=== PATIENT | female | born 2000 | race Caucasian/White ===

== ENCOUNTER 2024-02-18 06:27 | Outpatient (REF) | payer OTHER, SELFPAY ==
--- NOTE | ~2024-02-18 | US_ITS ---
EXAMINATION: US PELVIS CLINICAL INFORMATION: IUD COMPARISON: None available. TECHNIQUE: Ultrasound of the pelvis is performed using both transabdominal and transvaginal transducers along with Doppler. Transvaginal imaging is performed due to inadequate visualization transabdominally. FINDINGS: Uterus: The uterus is anteverted and measures 7.6 x 3.9 x 6.7 cm. The double wall endometrial thickness is 0.2 mm. IUD within the endometrium. The uterus is smooth in contour and has normal myometrial echogenicity. No visible fibroid. Adnexa: Both ovaries are visualized. There is normal color flow to the adnexa. There is no ovarian torsion. There is no pelvic ascites or fluid collection. Right ovary measures 3.2 x 2.4 x 1.9 cm. Left ovary measures 4.5 x 2.8 x 2.9 cm. There is a 2.2 x 1.3 x 2.4 cm cyst. US/US pelvic and transvaginal IMPRESSION: 1. IUD within the endometrium. 2. 2.4 cm left ovarian cyst. Electronically signed by: Natali Palmer MD 02/18/2024 08:26 PM DORIS
--- OUTSIDE RECORDS SUMMARY | 2024-02-23 04:36 | XMS_ITS ---
Author Organization [facility] Address [address] [id number] Care Team Providers Care Waiter/Waitress Bar Name Role Phone America Gonzales MD Primary Care Provider Jah Macdonald M.D., Alonso Silva [phone] Allergies Allergen (clinical drug ingredient) Drug/Non Drug Allergy documented on EMR Reaction Allergy Type Onset Date Status COUGH Medicine (uncoded) eyes get overly dilated Allergy Active REASON FOR VISIT Post op T&A. Patient had a tonsillectomy bleed Medications Medication SIG (Take, Route, Frequency, Duration) Notes Start Date End Date Status Flonase nasal spray 50 mcg/inh 1 spray(s) in each nostril once a day for 30 day(s) Active Vivance as directed Active naproxen 375 mg 1 tab(s) orally once a day Active Social History Tobacco Use: Social History Observation Description Date Details (start date - stop date) Never Smoker NA - NA Alcohol use: Question Answer Notes Did you have a drink containing alcohol in the p ast year? No Points 0 Interpretation Negative Smoking Question Answer Notes Are you nonsmoker Vital Signs Height 5'4 in 09/22/2022 Weight 57.27 kg kg 09/22/2022 BMI 21.67 kg/m2 09/22/2022 Encounters Encounter Location Date Provider Diagnosis [facility] [address] [id number] 09/22/2022 Alonso Macdonald Chronic tonsillitis J35.01 ; Tonsil stone J35.8 and Post-tonsillectomy hemorrhage J95.830 Assessments Encounter Date Diagnosis (ICD Code) Assessment Notes Treatment Notes Treatment Clinical Notes Section Notes 09/22/2022 Chronic tonsillitis (ICD-10 - J35.01) Pt doing better following tonsillectomy and adenoidectomy. 09/22/2022 Tonsil stone (ICD-10 - J35.8) 09/22/2022 Post-tonsillecto my hemorrhage (ICD-10 - J95.830) Pt doing better now.Pt will start the level of activities. Plan Of Treatment Next Appt Details Follow Up: prn, Reason: Progress Notes * Jenny OLIVEROS MDOB: [birth year] (22 yo F)Acc No.[id number]:09/22/2022 Progress Notes Patient:?Jenny Oliveros [place] Provider:?Alonso Macdonald MD :2000???Age:22 Y???Sex:Female D ate:09/22/2022 Address:[address] [place] [id number] Pcp:America Gonzales MD Subjective: * Chief Complaints: * ???Post op T&A. Patient had a tonsillectomy bleed * HPI: ???Throat:? Patient follow-up from tonsillectomy and adenoidectomy. ?No further bleeding and is doing better. ?I discussed with mother and patient the pathology. * Medical History:? * Surgical History:?Eye muscle surgery 05/27/2016[place] teeth removal 04/29/2018T&A 08/2022 * Hospitalization/Major Diagno stic Procedure:?Denies Past Hospitalization * Family History:?No Family Hi story documented..? * Social History:?Occupation: student. PHARMACY name/location: [employer]. Smoking?Are you?nonsmoker,?You Are:?Never Smoker.?Marital Status: Single. Number of people in household: 3. Legal guardian: Parent. Current Tobacco Use: No. Alcohol use?Did you have a drink containing alcohol in the past year??No,?Points?0,?Interpretation?Negative.? * Medications:?Takingnaproxen 375 mg delayed release tablet 1 tab(s) orally once a dayVivance as directed Flonase nasal spray 50 mcg/inh spray 1 spray(s) in each nostril once a dayMedication List reviewed and reconciled with the patientTaking naproxen 375 mg delayed release tablet 1 tab(s) orally once a dayTaking Vivance as directed Taking Flonase nasal spray 50 mcg/inh spray 1 spray(s) in each nostril once a dayMedication List reviewed and reconciled with the patient * Allergies:?COUGH Medicine: e yes get overly dilatedno[Allergies Verified] Objective: * Vitals:?Ht: 5'4 , Pain Scale :0, Wt: 57.27 kg, BMI: 21.67. * Examination: ???Ear: ???TMs are normal. ???Oral/Oropharynx: ???Oropharynx healing well. Assessment: * Assessment: 1.?Chronic tonsillitis - J35 .01, Pt doing better following tonsillectomy and adenoidectomy.?2.?Tonsil stone - J35.8?3.?Post-tonsillectomy hemorrhage - J95.830, Pt doing better now.Pt will start the level of activities.? Plan: * Treatment: * Procedure Codes:? * Preventive Medicine:? ??Counseling:?BMI Care goal follow up plan:?BMI management provided?Yes.? * Follow Up:?prn * Images: * Sign off status: Completed true * Provider:?Alonso Macdonald MD Date:?09/12 Generated for Adilson saunders/Sharon/eTransmitting on:?02/23/2024 04:36 AM EST History and Physical Notes * Examination Category Sub-Category Detail Notes Category Not es Ear TMs are normal. Oral/Oropharynx Oropharynx h ealing well.
--- OUTSIDE RECORDS SUMMARY | 2024-02-23 04:37 | XMS_ITS | Patient Health Record ---
Author Organization [facility] Address [address] [facility] [address] [place], [place] [phone] Care Team Providers Care Internet Manager Name Role Phone America Gonzales MD Primary Care Provider Jah Macdonald M.D., Alonso Shira [phone] Allergies Allergen (clinical drug ingredient) Drug/Non Drug Allergy documented on EMR Reaction Allergy Type Onset Date Status COUGH Medicine (uncoded) eyes get overly dilated Allergy Active Reason For Referral No Information Medications Medication SIG (Take, Route, Frequency, Duration) [...] Smoking Question Answer Notes Are you nonsmoker Problems Problem Type SNOMED Code ICD Code Onset Dates Problem Status W/U Status Risk Notes Problem 07302855 Chronic tonsillitis (J35.01) Active confirmed Pt doing better following tonsillectomy and adenoidectomy. Problem Chronic tonsillitis (disorder) (08432091) Chronic tonsillitis and adenoiditis (J35.03) Active confirmed Problem 185404451 Epistaxis (R04.0) Active confirmed Problem 89971323 Cough (R05) Active confirmed I discussed with mother that her throat clearing as it relates to PND aggravates her cough. Both vocal cords have normal movement. I would have patient use a saline spray to facilitate drainage. See an pretzel twisting machine operator. 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) Active confirmed Problem 240339232 Deviated septum (J34.2) Active confirmed Problem 39166799 Tonsillar hypertrophy (J35.1) Active confirmed Problem 98088553178919108 Chronic sinusitis of both maxillary sinuses (J32.0) Active confirmed I discussed with mom that there maybe both a structural as well as functional issue with her PND will obtain a CT scan to further evaluate her symptoms Problem 1877923 Tonsil stone (J35.8) Active confirmed Problem 75146352 Post-nasal drainage (R09.82) Active confirmed Problem 56262803 Facial pain (R51.9) Active confirmed I discussed with patient I did not appreciate an acute sinusitis issue. Her septal deformity and inferior turbinate hypertrophy I would recommend observation Problem 818328411 Chronic throat clearing (R09.89) Active confirmed I discussed with patient and mother that there is multiple causes of her throat clearing postnasal drainage issue. In addition, her Vyvanse medication can contribute to dry mouth Plan Of Treatment No Information Insurance Providers Payer Name Payer Address Payer Phone Subscriber Number Group Number Insured Name Patient Relationship to Insured Coverage Start Date Coverage End Date [employer] [facility] [employer] [address] [place] [phone] [id number] Rocio Medina Child - Insured has Financial Responsibility Medical (General) History Surgical History Surgery Date(Month/Year) Eye muscle surgery 05/27/2016 [place] teeth removal 04/29/2018 T&A 08/2022 Hospitalization History Reason Date(Month/Year)
--- OUTSIDE RECORDS SUMMARY | 2024-02-23 04:37 | XMS_ITS ---
Author Organization [facility] Address [address] [phone] Care Team Providers Care Negotiations Director Name Role Phone America Gonzales MD Primary Care Provider Jah Macdonald M.D., Alonso Silva [phone] REASON FOR VISIT prescription Encounters Encounter Location Date Provider Diagnosis [facility] [address] [phone] 09/18/2022 Alonso Macdonald Plan Of Treatment No Information Progress Notes * Jenny OLIVEROS MDOB: [birth year] (22 yo F)Acc No.[id number]:09/18/2022 Patient:?Jenny Oliveros :2000???Age:22 Y???Sex:Female Address:[address] [place] [address], [phone] * true * Date:? Generated for Adilson saunders/Sharon/eTransmitting on:?02/23/2024 04:36 AM EST
--- OUTSIDE RECORDS SUMMARY | 2024-02-23 04:37 | XMS_ITS | Data Portability ---
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 Follow up appointment arranged 30 minutes visit time. real-time video communication counseling and coordinating care. [email or web address] Not available 03/21/2021 12:11:27 09/26/2021 09/26/2021 Instructions, orders, and treatment plan, were discussed and reviewed with the patient during the visit. Follow up appointment arranged 30 minutes visit time. real-time video communication counseling and coordinating care. [email or web address] Not available 09/26/2021 11:52:38 08/21/2022 08/21/2022 Instructions, orders, and treatment plan, were discussed and reviewed with the patient during the visit. Follow up appointment arranged 40 minutes visit time. real-time video communication counseling and coordinating care. [email or web address] Not available 08/21/2022 11:10:13 08/10/2023 08/10/2023 Instructions, orders, and treatment plan, were discussed and reviewed with the patient during the visit. Follow up appointment arranged 30 minutes visit time. real-time video communication counseling and coordinating care. Not available 08/10/2023 14:54:53 11/04/2023 11/04/2023 Instructions, orders, and treatment plan, were discussed and reviewed with the patient during the visit. Follow up appointment arranged 20 minutes visit time. real-time video communication counseling and coordinating care. Instructions, orders, and treatment plan, were discussed and reviewed with the patient during the visit. Follow up appointment arranged 30 minutes visit time. real-time video communication counseling and coordinating care. [email or web address] Not available 11/04/2023 13:55:02 Plan of Treatment Reminders Order Date Submit Date Provider Last Modified By Organization Details Last Modified Time Details Appointments Telehealt h30 2023 12:30P M Duke Wilkins MD Not available Not available Not available Lab TSH, serum or plasma 2023 024 Sk[facility], [address] [facility], [place] [address], [place], [address], 08/14/2023 11:57:51 vitamin B12 + folate, serum or blood 2023 024 CLAIREPluck [facility], [address] [address], [place], [address], 08/14/2023 12:54:51 iron + TIBC + ferritin, serum 2023 024 [facility], [address] [facility], [place] [address], [place], [address], 08/14/2023 12:54:49 CBC 2023 024 CLAIREPluck [facility], [address] [address], [place], [address], 08/14/2023 11:57:52 CMP, serum or plasma 2023 024 [facility], [address] [facility], [place] [address], [place], [address], 08/14/2023 12:54:50 erythrocy te sedimenta tion rate by [email or web address] n method 2023 024 [facility], [address] [facility], [place] [address], [place], [address], 08/14/2023 13:16:04 Referral psychiatr ist referral - Please call patient to schedule appointme nt 2023 024 [email or web address] Duke Wilkins MD, [address] [facility], [place], [address], 09/09/2023 12:36:52 Procedures None recorded. Surgeries None recorded. Imaging None recorded. Medication Orders trazodone 50 mg tablet [address] [id number], [address], [place], [address], 03/21/2021 12:14:24 Patient TargetsNo targets recorded. Patient Instructions Encounter Date Encounter Id Patient Instructions Last Modified By Organization Details Last Modified Time 03/21/2021 [id number] She has a tenden cy with circadian phase delay as well as sleep onset insomnia triggered by anxiety. I have emphasized the importance of good sleep hygiene with stimulus control. I do believe trazodone has helped in addition to blue light filtering techniques. She will continue doing so when she returns back to college. I believe she needs to resume her meditation practice to help deal with the anxiety that she has struggled with in school. She had done well in the past when she was consistent with meditation. I also believe her sleep quality will be improved when her breathing issues have stabilized. I believe she may be benefited by possible tonsillectomy with adenoid removal if her current regimen is not working despite the pneumococcal vaccine. It does not appear that she has ongoing problems with asthma. There may be some concerns regarding a sensitivity in the dormitory at school. She remains physically active. I have emphasized the importance of a good exercise routine as it relates to architectural stability of sleep. I will see her back in the next 6 months when she is back at home. More than 50% of this 35 minutes clinic visit spent in coordinating and counseling care in the presence of her mother. [email or web address] Not available 03/21/2021 12:13:46 09/26/2021 [id number] She has known problems with circadian phase delay. Sleep hygiene and stimulus control instructions been reenforced. I am delighted that she has been practicing this on a consistent basis. Her sleep schedule also needs to remain consistent. She is targeting at least 10-11 hours of sleep. I believe the need for excessive sleep will hopefully diminish after the conclusion of her tonsillectomy. This may help with improved sleep quality. If this is not then I may bring her into the sleep lab for an overnight polysomnogram followed by multiple sleep latency testing. In the meantime Vyvanse has worked well for her. She also uses trazodone on some nights when she has troubles with sleep onset insomnia. I will see her back in 6 months and keep you updated. More than 50% of this 20 minutes clinic visit spent in coordinating and counseling care. [email or web address] Not available 09/26/2021 11:54:02 08/21/2022 [id number] She is strugglin g with adjusting to her biological tendency for sleep phase delay. I have spoken yet again about the importance of stimulus control and the lack of blue light in the evening hours. She will need bright light in the morning to allow her to wake up without too much of a struggle. She needs at least 8-9 hours of sleep time. She is on stimulant medication to help counteract the persistent sleepiness in the day. However she is anxious, angry and depressed. She will need the benefit of psychotherapy and possible mood stabilization medications to help deal with her anxiety and depression. She is due to see a therapist in the next few weeks. I have also asked her to contact me once she has had tonsil surgery. I would like to repeat a sleep study before she returns back to school. It will be important that she chews her environment carefully when she returns to school. She has 2 more years to graduate. When she does she will be best served by working in a situation that allows her to work late at night as well as allow her to sleep late in the morning. I will see her back in the next 6 months. More than 50% of this 45 minute clinic visit spent in coordinating and counseling care, using telehealth technology in the presence of her mother. Not available 08/21/2022 11:11:49 08/10/2023 [id number] There is a clear tendency towards circadian phase delay. Stimulus control and sleep hygiene instructions been reinforced. She does not have a primary disorder of sleepiness. Moreover she had struggles with insomnia which are well controlled with the combination of these measures as well as low-dose trazodone. She is also being treated by her psychiatrist for a mood disorder. She is maintained on Abilify therapy for this. Despite this she feels profoundly fatigued and sleepy in the daytime. Stimulant medication has worked well for her in the past. She is eager to resume but has been asked to start on an alerting medication under the guidance of her sleep physician. I do not believe she needs an overnight polysomnogram or multiple sleep latency testing. She would need to come off these medications which would clearly contribute to rebound insomnia. I believe this would be under the purview of her psycopharmacologis t. I will reach out to Dr. Baker at [phone]. Focalin or extended release Ritalin might be the best medication for her rather than considering Provigil or Nuvigil. She will have annual follow-up scheduled again in this clinic. [email or web address] Not available 08/10/2023 14:56:33 11/04/2023 [id number] I am delighted that she has responded well to lamotrigine therapy. She will continue to have follow-up in the psychiatry clinic for her mood disorder. She is sleeping better through the night. However she developed problems with diplopia on her stimulant medication. I will email her psychiatrist to see if there is an alternative such as Vyvanse or Concerta that has worked well for her in the past. This will be filled out at the [facility] pharmacy in [place] if needed. I have asked her not to compromise the amount of sleep time that she needs and gets. Stimulus control and sleep hygiene instructions been reinforced. The emphasis for physical activity during the school semester has also been emphasized. More than 50% of this visit is spent in coordinating and counseling her care, including the writing of this note [email or web address] Not available 11/04/2023 13:56:26 Reason for Referral Psychiatrist Referral for Mi xed anxiety and depressive disorder depression, sleepiness, Needs evaluation. Now is an adult. Mother very helpful. Please call patient to schedule appointment Referring Physician: Lopez Roblero, Pulmonary Disease, Encounter Date: 08/10/2023 Results Created Date Observation Date Name Description Value Unit Range Abnormal Flag Note LastModifiedBy Organization Detail LastModifiedTime 08/13/19 24 08/14/2023 TSH W/REF L FT4 TSH w/reflex to FT4 1.00 mIU/L normal Refer ence Range > or = 20 Years 0.40- 4.50 Pregn valdemar Range s First trime ster 0.26- 2.66 Secon d trime ster 0.55- 2.73 Third trime ster 0.43- 2.91 Not Available [facility] [place] [facility] [address], [place], [address], 08/14/2023 11:57:51 08/13/19 24 08/14/2023 CBC(H /H,RB C,WBC ,PLT) white blood cell count 9.6 thous and/u L 3.8-10 .8 normal Not Available [facility] [place] [facility] [address], [place], [address], 08/14/2023 11:57:52 08/13/19 24 08/14/2023 CBC(H /H,RB C,WBC ,PLT) red blood cell count 4.73 florecita on/uL 3.80-5 .10 normal Not Available [facility] [place] [facility] [address], [place], [address], 08/14/2023 11:57:52 08/13/19 24 08/14/2023 CBC(H /H,RB C,WBC ,PLT) hemoglobin 13.2 g/dL 11.7-1 5.5 normal Not Available [facility] [place] [facility] [address], [place], [address], 08/14/2023 11:57:52 08/13/19 24 08/14/2023 CBC(H /H,RB C,WBC ,PLT) hematocrit 40.5 % 35.0-4 5.0 normal Not Available [facility] [address], [place], [address], 08/14/2023 11:57:52 08/13/19 24 08/14/2023 CBC(H /H,RB C,WBC ,PLT) MCV 85.6 fL 80.0-1 00.0 normal Not Available [facility] [place] [facility] [address], [place], [address], 08/14/2023 11:57:52 08/13/19 24 08/14/2023 CBC(H /H,RB C,WBC ,PLT) MCH 27.9 pg 27.0-3 3.0 normal Not Available [facility] [place] [facility] [address], [place], [address], 08/14/2023 11:57:52 08/13/19 24 08/14/2023 CBC(H /H,RB C,WBC ,PLT) MCHC 32.6 g/dL 32.0-3 6.0 normal Not Available [facility] [address], [place], [address], 08/14/2023 11:57:52 08/13/19 24 08/14/2023 CBC(H /H,RB C,WBC ,PLT) RDW 14.0 % 11.0-1 5.0 normal Not Available [facility] [address], [place], [address], 08/14/2023 11:57:52 08/13/19 24 08/14/2023 CBC(H /H,RB C,WBC ,PLT) platelet count 339 thous and/u L 140-40 0 normal Not Available [facility] [place] [facility] [address], [place], [address], 08/14/2023 11:57:52 08/13/19 24 08/14/2023 CBC(H /H,RB C,WBC ,PLT) MPV 9.3 fL 7.5-12 .5 normal Not Available [facility] [address], [place], [address], 08/14/2023 11:57:52 08/13/19 24 08/14/2023 IRON, TIBC, CONCHITA PNL iron, total 88 mcg/d L 40-190 normal Not Available [facility] [place] [facility] [address] [place], [place], [address], 08/14/2023 12:54:49 08/13/19 24 08/14/2023 IRON, TIBC, CONCHITA PNL iron binding capacity 429 mcg/d L_(ca lc) 250-45 0 normal Not Available [facility] [place] [facility] [address] [place], [place], [address], 08/14/2023 12:54:49 08/13/19 24 08/14/2023 IRON, TIBC, CONCHITA PNL % saturation 21 %_(ca lc) 16-45 normal Not Available [facility] [place] [facility] [address], [place], [address], 08/14/2023 12:54:49 08/13/19 24 08/14/2023 IRON, TIBC, CONCHITA PNL ferritin 19 NG/mL 16-154 normal Not Available [facility] [place] [facility] [address] [place], [place], [address], 08/14/2023 12:54:49 08/13/19 24 08/14/2023 COMP META PNL glucose 118 mg/dL 65-99 high Fasti ng refer ence inter [place] For someo ne witho ut known diabe daphney, a gluco se value betwe en 100 and 125 mg/dL is consi stent with predi abete s and shoul d be confi rmed with a follo w-up test. Not Available [facility] [place] [facility] [address] [place], [place], [address], 08/14/2023 12:54:50 08/13/19 24 08/14/2023 COMP META PNL urea nitrogen (BUN) 16 mg/dL 7-25 normal Not Available [facility] [address], [place], [address], 08/14/2023 12:54:50 08/13/19 24 08/14/2023 COMP META PNL creatinine 0.61 mg/dL 0.50-0 .96 normal Not Available [facility] [address], [place], [address], 08/14/2023 12:54:50 08/13/19 24 08/14/2023 COMP META PNL eGFR 130 mL/mi n/1.7 3m2 > or = 60 normal Not Available [facility] [address], [place], [address], 08/14/2023 12:54:50 08/13/19 24 08/14/2023 COMP META PNL BUN/creatini ne ratio SEE NOTE: (calc ) 6-22 normal Not Repor neeraj: BUN and Creat inine are withi n refer ence range . Not Available [facility] [address], [place], [address], 08/14/2023 12:54:50 08/13/19 24 08/14/2023 COMP META PNL sodium 135 mmol/ L 135-14 6 normal Not Available [facility] [address], [place], [address], 08/14/2023 12:54:50 08/13/19 24 08/14/2023 COMP META PNL potassium 3.7 mmol/ L 3.5-5. 3 normal Not Available [facility] [address], [place], [address], 08/14/2023 12:54:50 08/13/19 24 08/14/2023 COMP META PNL chloride 102 mmol/ L 98-110 normal Not Available [facility] [address], [place], [address], 08/14/2023 12:54:50 08/13/19 24 08/14/2023 COMP META PNL carbon dioxide 27 mmol/ L 20-32 normal Not Available [facility] [address], [place], [address], 08/14/2023 12:54:50 08/13/19 24 08/14/2023 COMP META PNL calcium 9.1 mg/dL 8.6-10 .2 normal Not Available [facility] [address], [place], [address], 08/14/2023 12:54:50 08/13/19 24 08/14/2023 COMP META PNL protein, total 6.7 g/dL 6.1-8. 1 normal Not Available [facility] [address], [place], [address], 08/14/2023 12:54:50 08/13/19 24 08/14/2023 COMP META PNL albumin 4.3 g/dL 3.6-5. 1 normal Not Available [facility] [address], [place], [address], 08/14/2023 12:54:50 08/13/19 24 08/14/2023 COMP META PNL globulin 2.4 g/dL_ (calc ) 1.9-3. 7 normal Not Available [facility] [address], [place], [address], 08/14/2023 12:54:50 08/13/19 24 08/14/2023 COMP META PNL albumin/glob ulin ratio 1.8 (calc ) 1.0-2. 5 normal Not Available [facility] [address], [place], [address], 08/14/2023 12:54:50 08/13/19 24 08/14/2023 COMP META PNL bilirubin, total 0.3 mg/dL 0.2-1. 2 normal Not Available [facility] [place] [facility] [address], [place], [address], 08/14/2023 12:54:50 08/13/19 24 08/14/2023 COMP META PNL alkaline phosphatase 53 U/L 31-125 normal Not Available [facility] [place] [facility] [address], [place], [address], 08/14/2023 12:54:50 08/13/19 24 08/14/2023 COMP META PNL AST 13 U/L 10-30 normal Not Available [facility] [place] [facility] [address], [place], [address], 08/14/2023 12:54:50 08/13/19 24 08/14/2023 COMP META PNL ALT 15 U/L 6-29 normal Not Available [facility] [place] [facility] [address], [place], [address], 08/14/2023 12:54:50 08/13/19 24 08/14/2023 VIT B12/F OLATE ,SERU M vitamin B12 399 pg/mL 200-11 00 normal Pleas e Note: Altho ugh the refer ence range for vitam in B12 is 200-1 100 pg/mL , it has been repor neeraj that betwe en 5 and 10% of patie nts with value s betwe en 200 and 400 pg/mL may exper ience neuro psych iatri c and hemat ologi c abnor malit ies due to occul t B12 defic iency ; less than 1% of patie nts with value s above 400 pg/mL will have sympt oms. Not Available [facility] [place] [facility] [address], [place], [address], 08/14/2023 12:54:51 08/13/19 24 08/14/2023 VIT B12/F OLATE ,SERU M folate, serum 13.2 NG/mL normal Refer ence Range Low: <3.4 Borde rline : 3.4-5 .4 Elsa l: >5.4 Not Available [facility] [address], [place], [address], 08/14/2023 12:54:51 08/13/19 24 08/14/2023 SED RATE BY [facility] sed rate by modified [email or web address] 6 mm/h 0-20 normal Not Available [facility] [address], [place], [address], 08/14/2023 13:16:04 10/02/19 23 09/24/2022 home sleep testi ng (PROC ) No observ ation record ed. [email or web address] Not Available 2022 16:28:31 Result Notes None recorded. Procedures Surgical History None recorded. Imaging Results Imaging Date Name Status LastModified by Organiz ation Details LastModified Time 09/24/2022 home sleep testing (PROC) completed [email or web address] Information not available 10/26/2022 16:28:31 Procedure Notes None recorded. Medical Equipment None Reported. Medications Name Sig Start Date Stop Date Status Note LastModified by Organization Details LastModified Time cyclobenzap rine 10 mg tablet 08/21 completed Not Available Not Available Not Available amoxicillin 500 mg capsule TAKE 1 CAPSULE (500 MG) BY MOUTH TWICE A DAY FOR 5 DAYS 08/09 completed Not Available Not Available Not Available venlafaxine ER 75 mg capsule,ext ended release 24 hr TAKE 1 CAPSULE BY MOUTH EVERY DAY active Not Available Not Available No t Available clindamycin HCl 300 mg capsule 09/26 completed Not Available Not Available Not Available trazodone 50 mg tablet TAKE 1 TABLET BY MOUTH EVERYDAY AT BEDTIME active Not Available Not Available No t Available azithromyci n 250 mg tablet TAKE 2 TABLETS BY MOUTH TODAY, THEN TAKE 1 TABLET DAILY FOR 4 DAYS 10/04 completed Not Available Not Available Not Available fluconazole 150 mg tablet 08/21 completed Not Available Not Available Not Available valacyclovi r 1 gram tablet TAKE 1 TABLET BY MOUTH EVERY 12 HOURS FOR 7 DAYS 10/04 completed Not Available Not Available Not Available hydrocodone 5 mg-acetamin ophen 325 mg tablet 08/21 completed Not Available Not Available Not Available metronidazo le 0.75 % (37.5 mg/5 gram) vaginal gel active Not Available Not Available Not Available fluoxetine 10 mg tablet 08/09 completed Not Available Not Available Not Available oxycodone 5 mg/5 mL oral solution TAKE 5 ML (5 MG TOTAL) BY MOUTH EVERY 4 (FOUR) HOURS NEEDED FOR PAIN 08/09 completed Not Available Not Available Not Available metronidazo le 500 mg tablet 08/09 completed Not Available Not Available Not Available ondansetron 8 mg disintegrat ing tablet TAKE 1 TABLET (8 MG) BY MOUTH EVERY 8 HOURS NEEDED FOR NAUSEA AND VOMITING active Not Available Not Available No t Available lamotrigine 25 mg tablet PLEASE SEE ATTACHED FOR DETAILED DIRECTION S active Not Available Not Available No t Available amoxicillin 875 mg tablet 10/04 completed Not Available Not Available Not Available dextroamphe tamine-amph etamine ER 20 mg 24hr capsule,ext end release 08/21 completed Not Available Not Available Not Available naproxen sodium 550 mg tablet TAKE 1 TABLET BY MOUTH EVERY 12 HOURS NEEDED WITH FOOD OR MILK 08/21 completed Not Available Not Available Not Available oseltamivir 75 mg capsule 09/26 completed Not Available Not Available Not Available fluoxetine 20 mg tablet 08/09 completed Not Available Not Available Not Available misoprostol 200 mcg tablet active Not Available Not Available Not Available polymyxin B sulfate 10,000 unit-trimet hoprim 1 mg/mL eye drops active Not Available Not Available Not Available dextroamphe tamine-amph etamine ER 10 mg 24hr capsule,ext end release 08/21 completed Not Available Not Available Not Available norethindro ne acetate 5 mg tablet TAKE 1 TABLET BY MOUTH EVERY DAY active Not Available Not Available No t Available ibuprofen 600 mg tablet active Not Available Not Available Not Available oxycodone-a cetaminophe n 7.5 mg-325 mg tablet TAKE 1 TABLET BY MOUTH EVERY 6 (SIX) HOURS IF NEEDED FOR PAIN SCORE 7-10 FOR UP TO 3 DAYS. 08/21 completed Not Available Not Available Not Available albuterol sulfate HFA 90 mcg/actuati on aerosol inhaler INHALE 1 TO 2 PUFFS EVERY 6 HOURS NEEDED active Not Available Not Available No t Available ondansetron 4 mg disintegrat ing tablet TAKE 1 TABLET BY MOUTH EVERY 8 HOURS NEEDED FOR NAUSEA AND VOMITING active Not Available Not Available No t Available methylpheni date ER 18 mg tablet,exte nded release 24 hr TAKE 1 TABLET BY MOUTH EVERY DAY 09/26 completed Not Available Not Available Not Available lamotrigine 100 mg tablet TAKE 1 TABLET EVERY DAY BY ORAL ROUTE IN THE MORNING. active Not Available Not Available No t Available naproxen 500 mg tablet 08/21 completed Not Available Not Available Not Available amoxicillin 875 mg-potassiu m clavulanate 125 mg tablet TAKE 1 TABLET EVERY 12 HOURS DAILY 08/21 completed Not Available Not Available Not Available tobramycin 0.3 %-dexametha sone 0.1 % eye drops,suspe nsion 08/21 completed Not Available Not Available Not Available oxycodone 5 mg tablet TAKE 1 TABLET BY MOUTH EVERY 4 HOURS NEEDED FOR PAIN SCALE 4-6 08/09 completed Not Available Not Available Not Available neomycin 3.5 mg/g-polymy annabelle B 10,000 unit/g-dexa meth 0.1 % eye oint APPLY TO BOTH EYES THREE TIMES A DAY FOR 1 WEEK. active Not Available Not Available No t Available azithromyci n 500 mg tablet 09/26 completed Not Available Not Available Not Available medroxyprog esterone 150 mg/mL intramuscul ar syringe INJECT 1 ML (150 MG) INTO THE SHOULDER, THIGH, OR BUTTOCKS 1 (ONE) TIME FOR 1 DOSE. active Not Available Not Available No t Available aripiprazol e 10 mg tablet TAKE 1 TABLET DAILY active Not Available Not Available No t Available aripiprazol e 5 mg tablet 08/09 completed Not Available Not Available Not Available methylpheni date LA 20 mg biphasic 50-50 capsule,ext ended release 08/09 completed Not Available Not Available Not Available methylpheni date LA 30 mg biphasic 50-50 capsule,ext ended release 08/09 completed Not Available Not Available Not Available methylpheni date LA 10 mg biphasic 50-50 capsule,ext ended release 08/09 completed Not Available Not Available Not Available dexmethylph enidate ER 10 mg capsule,ext ended release [id number] 08/09 completed Not Available Not Available Not Available dexmethylph enidate ER 15 mg capsule,ext ended release [id number] active Not Available Not Available Not Available Vyvanse 30 mg capsule TAKE 1 CAPSULE BY MOUTH EVERY DAY IN THE MORNING 08/21 completed Not Available Not Available Not Available Vyvanse 20 mg capsule TAKE 1 CAPSULE BY MOUTH EVERY DAY 08/21 completed Not Available Not Available Not Available Cough DM ER 30 mg/5 mL oral suspension, extended release 09/26 completed Not Available Not Available Not Available methylpheni date ER 30 mg capsule,ext ended release (40-60) sprinkle 08/09 completed Not Available Not Available Not Available Vitals None Recorded Social History None recorded. Functional Status None recorded. Mental Status None recorded. Family History Nothing Reported. Medical History No medical history recorded. Gynecological HistoryNo gynecological history recorded. 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 Large tonsils 665052088 J35.1 Mixed anxi ety and depressive disorder 522601338 F41.8 Chronic insomnia 5646485 04 F51.04 Snoring 44047520 R06.83 [id number] LOPEZ ROBLERO MD [facility] AT [address] [address] 03/21/2021 11:28:23 03/21/2021 12:29:21 Sleep-wake schedule disorder, delayed phase type 26057498 G47.21 Large tonsils 072778379 J35.1 Mixed anxi ety and depressive disorder 882169656 F41.8 Chronic insomnia 8581366 04 F51.04 Snoring 05759831 R06.83 [id number] LOPEZ ROBLERO MD [facility] AT [address] [address] 09/26/2021 11:18:17 09/26/2021 11:57:59 Sleep-wake schedule disorder, delayed phase type 78284546 G47.21 Large tonsils 961561809 J35.1 Mixed anxi ety and depressive disorder 125943664 F41.8 Chronic insomnia 0739030 04 F51.04 Snoring 56405758 R06.83 [id number] LOPEZ ROBLERO MD [facility] [address] [facility] [address] 08/21/2022 10:30:17 08/21/2022 11:16:43 Sleep-wake schedule disorder, delayed phase type 56934902 G47.21 Large tonsils 621292894 J35.1 Mixed anxi ety and depressive disorder 720752377 F41.8 Chronic insomnia 2104824 04 F51.04 Snoring 10425916 R06.83 [id number] LOPEZ ROBLERO MD [facility] [address] [place] [address] 08/10/2023 11:38:17 08/10/2023 15:04:26 Sleep-wake schedule disorder, delayed phase type 67932341 G47.21 Large tonsils 703617866 J35.1 Mixed anxi ety and depressive disorder 370718554 F41.8 Chronic insomnia 7943078 04 F51.04 Snoring 81827125 R06.83 Fatigue 78937253 R53.83 [id number] Duke Wilkins MD [facility] [address] [place] [address] 09/24/2023 12:49:33 10/13/2023 15:11:51 [id number] Duke Wilkins MD [facility] [address] [place] [address] 10/25/2023 13:18:23 10/29/2023 16:09:47 [id number] LOPEZ ROBLERO MD [facility] [address] [place] [place] [address],[address] [place] [address] 11/04/2023 10:17:24 11/04/2023 14:23:24 Sleep-wake schedule disorder, delayed phase type 76684255 G47.21 Large tonsils 542387371 J35.1 Mixed anxi ety and depressive disorder 322246852 F41.8 Chronic insomnia 1826875 04 F51.04 Snoring 00088369 R06.83 [id number] Duke Wilkins MD [facility] [address] [place] [address] 11/26/2023 13:22:30 12/01/2023 14:22:38 [id number] Duke Wilkins MD [facility] [address] [place] [address] 01/07/2024 14:20:46 01/10/2024 14:26:55 [id number] Duke Wilkins MD [facility] [address] [place] [address] 01/28/2024 14:52:08 01/31/2024 11:23:30 Health Concerns Section Related Observation LastModified by Organization Detai ls LastModified Time None Recorded Concern Status LastModified by Organization Details LastModified Time None Recorded Advance Directives Directive None Recorded Payers Encounter Date Sequence Insurance Name Policy Number Policy Brizuela Covered Member ID Brizuela Member ID Guarantor Name 03/21/[address] [facility] Jenny Uriostegui [id number] Jenny Uriostegui 09/26/2021 1 [facility] [id number] 7 Rocio Medina [id number] Jenny Uriostegui 08/21/2022 1 [employer] - SENIOR SERVICES (PPO) [id number] 7 Rocio Medina [id number] Jenny Uriostegui 08/10/2023 1 [facility] [id number] 7 Rocio Medina [id number] Jenny Uriostegui 11/04/2023 1 [facility] [id number] 7 Rocio Medina [id number] Jenny Renettabradford Notes Date Note Type Note Provider Name and Address Organization Details Recorded Time 03/21/2021 text/html The patient is a ? 20 year old who presents today for follow up of insomnia and circadian phase delay. I shall briefly recount relevant details for the record. Since her last visit with me she had a home sleep test that raised features of upper airway resistance without significant apnea. Her AHI was 5.1 episodes per hour. I discussed these results with both her and her mother and she was sleeping much better at the time with the aid of trazodone and stimulus control using blue light filters. She has been at the [employer] this last semester. When she was at school she would do better when she was quite busy during the day and physically active. She developed significant anxiety when she was unable to sleep at night although trazodone clearly helped with sleep onset insomnia. She has stopped her meditation practice. Since returning from school her sleep-wake cycle has been delayed as it was in the past. She has had significant issues with sinus congestion as well as her breathing over the past few months. She has been seeing an sql server developer in [place] and is due to receive her pneumococcal vaccine. There are concerns regarding a down regulated immune response. She is on a nasal spray as well as Inga in addition to inhaler therapy. She has been seen in the ENT clinic and there are no plans for a tonsillectomy. When she does get congested she has difficulty swallowing. Her sleep-wake schedule is delayed. She tends to fall asleep by 02:00. She awakens between 10 and 11:00. On some mornings she will only fall asleep between 5 and 06:00 despite her best efforts. [place] Sleepiness Scale: 1224 (tendency to fall asleep with reading, watching TV, while driving and stopped in traffic, as a passenger in the car, after lunch, lying down to rest in the afternoon, sitting inactive in a public place, sitting and talking to someone) The patient denies discomfort/abnormal sensations in lower extremities in the evening hours, brought on at rest, alleviated by movement. Patient denies sleepwalking, sleep talking, teeth grinding, and other unusual nocturnal behaviors.Patient denies symptoms of cataplexy, hypnogogic/hypnopompi c hallucinations, or sleep paralysis. The patient acknowledges that they can see a clinician in-person in the event of an emergency or as otherwise needed {{yes* no}} Patient consents to having a Telehealth appointment today {{yes* no}} Patients host site is: {{home* work school o ther}}. Persons present {{patient alone patient and family member* patient and friend}} My originating site: {{my office* Home Depart[employer] Name}}. Person present {{myself alone* myself and staff}} This appointment/visit has been conducted using two-way, real-time telehealth video conferencing in which {{video and audio was used* audio alone was used due to technical complications despite multiple tries, proceeded with patient consent audio alone on host/patient site}}. LOPEZ ROBLERO MD [address] [place] [address], [phone], [facility] 03/21/2021 12:14:24 09/26/2021 text/html The patient is a 21 ? year old who presents today for concerns regarding circadian phase delay and insomnia. I shall briefly recount relevant details for the record. Since her last visit with me she has been doing well with respect to stimulus control. She filter is out all blue light from her computer after 23:00. She generally falls asleep around 01:00 with the aid of trazodone. On some nights she will use cyclobenzaprine especially if she is having difficulties with muscle spasm. She is practicing improve sleep hygiene. She does use a mask over her eyes when she is in bed. She also listens to a show that is not too stimulating on her computer. She generally awakens around 12 noon and will take her Vyvanse prescription at that time. She has begun meditation practice upon awakening in the morning. She is doing a double major at the [employer] in [place]. She will be entering her bulmaro year next year. She has been doing well at school. She does enjoy a physical exercise also. She is prone to injury because she has hyper extensile joints. She has been seen in the ENT clinic and is scheduled for tonsillectomy in the [facility]. She does use an inhaler and occasional nasal spray. The rest of medications are reviewed, updated and reconciled. [place] Sleepiness Scale: 8/24 (tendency to fall asleep with reading, watching TV, while driving and stopped in traffic, as a passenger in the car, after lunch, lying down to rest in the afternoon, sitting inactive in a public place, sitting and talking to someone) The patient denies discomfort/abnormal sensations in lower extremities in the evening hours, brought on at rest, alleviated by movement. Patient denies sleepwalking, sleep talking, teeth grinding, and other unusual nocturnal behaviors.Patient denies symptoms of cataplexy, hypnogogic/hypnopompi c hallucinations, or sleep paralysis. The patient acknowledges that they can see a clinician in-person in the event of an emergency or as otherwise needed {{yes* no}} Patient consents to having a Telehealth appointment today {{yes* no}} Patients host site is: {{home* work school o ther}}. Persons present {{patient alone* patient and family member patient and friend}} My originating site: {{my office* Home [employer]artme nt Name}}. Person present {{myself alone* myself and staff}} This appointment/visit has been conducted using two-way, real-time telehealth video conferencing in which {{video and audio was used* audio alone was used due to technical complications despite multiple tries, proceeded with patient consent audio alone on host/patient site}}. LOPEZ ROBLERO MD [address] [place] [address], [phone], [facility] 09/26/2021 11:54:58 08/21/2022 text/html The patient is a ? 21 year old who presents today for sleep phase delay and mild sleep disordered breathing. I shall briefly recount relevant details for the record. She has been struggling with her sleep timings over the past few months. She had eye surgery in March of this year. She was doing well after the procedure when she was living at home. She is been back in school and has struggled with anxiety given the lack of consistent sleep. She does use trazodone prior to sleep onset to help with sleep onset insomnia. She does wake up with a panic after 3 alarms in the morning. She is currently on Ritalin extended release to help with the persistent fatigue in the daytime. She is scheduled to have tonsillar surgery in the upcoming weeks. Her weight has remained stable. She does deal with anxiety and depression. She is also quite angry with the lack of adequate resources to help with her adjustment to her school and her home situation. She is also due to start work next week. She will have a [address] The patient's sleep hours are from around 2-5 M to 11 a-3 PM, on weekdays and on weekends.? [place] Sleepiness Scale: 03/07 (tendency to fall asleep with reading, watching TV, while driving and stopped in traffic, as a passenger in the car, after lunch, lying down to rest in the afternoon, sitting inactive in a public place, sitting and talking to someone) The patient denies discomfort/abnormal sensations in lower extremities in the evening hours, brought on at rest, alleviated by movement. Patient denies sleepwalking, sleep talking, teeth grinding, and other unusual nocturnal behaviors.Patient denies symptoms of cataplexy, hypnogogic/hypnopompi c hallucinations, or sleep paralysis. Indications are reviewed, updated and reconciled The patient acknowledges that they can see a clinician in-person in the event of an emergency or as otherwise needed {{yes* no}} Patient consents to having a Telehealth appointment today {{yes* no}} Patients host site is: {{home* work school o ther}}. Persons present {{patient alone* patient and family member patient and friend}} My originating site: {{my office* Home [employer] Name}}. Person present {{myself alone* myself and staff}} This appointment/visit has been conducted using two-way, real-time telehealth video conferencing in which {{video and audio was used* audio alone was used due to technical complications despite multiple tries, proceeded with patient consent audio alone on host/patient site}}. LOPEZ ROBLERO MD [address] [place] [address], [phone], [facility] 08/21/2022 11:15:42 08/10/2023 text/html The patient is a ? 22 year old who presents today for follow up of sleep phase delay and fatigue. I shall briefly recount relevant details for the record. She is just concluded 3rd year of school at [employer]. She has been seen in the Psychiatry Clinic by Dr. Baker and has been prescribed Abilify to help with her mood disorder. She had initially been on Prozac therapy and has been drinking a significant amount of caffeine in conjunction to taking extended release Ritalin. This had helped keep her fairly stable with respect to her class schedule. She was taking classes between 12 noon and 16:00 5 days a week. She was also finding time for exercise and had been doing well at school. She will graduate in 1 year from now with a major in entrepreneurship. Since coming back home to [place] she is helping her dad in his work. She is working more out of the home office. However her Ritalin prescription has been discontinued given concerns for psychosis. She is even cut out caffeine quite significantly. As a consequence she is struggling to stay awake during the day. She has been on Vyvanse, Concerta, Adderall and Focalin therapy. Focalin appeared to be working best for her. She is eager to resume this medication but has been told that it needs to be prescribed by a sleep provider. She does not have problems with ongoing insomnia, cataplexy or snoring. Her last sleep study in September of 2022 did not raise concerns for sleep apnea either. The patient's sleep hours are from around 1-2 AMto 12-1 PM, on weekdays and on weekends.? [place] Sleepiness Scale: 03/07 (tendency to fall asleep with reading, watching TV, while driving and stopped in traffic, as a passenger in the car, after lunch, lying down to rest in the afternoon, sitting inactive in a public place, sitting and talking to someone) The patient denies discomfort/abnormal sensations in lower extremities in the evening hours, brought on at rest, alleviated by movement. Patient denies sleepwalking, sleep talking, teeth grinding, and other unusual nocturnal behaviors.Patient denies symptoms of cataplexy, hypnogogic/hypnopompi c hallucinations, or sleep paralysis. The patient acknowledges that they can see a clinician in-person in the event of an emergency or as otherwise needed {{yes* no}} Patient consents to having a Telehealth appointment today {{yes* no}} Patients host site is: {{home* work school o ther}}. Persons present {{patient alone* patient and family member patient and friend}} My originating site: {{my office* [employer] Name}}. Person present {{myself alone* myself and staff}} This appointment/visit has been conducted using two-way, real-time telehealth video conferencing in which {{video and audio was used* audio alone was used due to technical complications despite multiple tries, proceeded with patient consent audio alone on host/patient site}}. LOPEZ ROBLERO MD [address] [place] [address], [phone], [facility] 08/12/2023 12:17:29 11/04/2023 text/html The patient is a ? 23 year old who presents today for follow up of Insomnia and daytime fatigue. Should briefly recount the relevant details for the record. Since her last visit with me she had a follow-up in the psychiatry clinic. She has been placed on lamotrigine therapy which has worked well for her and 100 mg dosage. She finds that her alertness and energy levels have been restored even though she does need medication to help with focus and concentration. She was prescribed Focalin which gave her problems with diplopia on more than 1 occasion. She has stopped using this medication and questions whether there might be an alternative for her. Weight is remained stable. She is not targeting a bedtime anywhere between 9 PM and midnight with a wake time close to 9 AM. She returns back to school at the [employer] this weekend. She will be taking classes on Mondays through at 10 AM. She will remain physically active. She will keep follow-up with Dr. Wilkins in clinic [place] Sleepiness Scale: 11/05 (tendency to fall asleep with reading, watching TV, while driving and stopped in traffic, as a passenger in the car, after lunch, lying down to rest in the afternoon, sitting inactive in a public place, sitting and talking to someone) The patient denies discomfort/abnormal sensations in lower extremities in the evening hours, brought on at rest, alleviated by movement. Patient denies sleepwalking, sleep talking, teeth grinding, and other unusual nocturnal behaviors.Patient denies symptoms of cataplexy, hypnogogic/hypnopompi c hallucinations, or sleep paralysis. The patient acknowledges that they can see a clinician in-person in the event of an emergency or as otherwise needed {{yes* no}} Patient consents to having a Telehealth appointment today {{yes* no}} Patients host site is: {{home* work school o ther}}. Persons present {{patient alone* patient and family member patient and friend}} My originating site: {{my office* [employer] Name}}. Person present {{myself alone* myself and staff}} This appointment/visit has been conducted using two-way, real-time telehealth video conferencing in which {{video and audio was used* audio alone was used due to technical complications despite multiple tries, proceeded with patient consent audio alone on host/patient site}}. LOPEZ ROBLERO MD [address] [place] [address], [phone], [facility] 11/04/2023 13:57:27 OBGyn Episode No OBEpisode recorded.
--- OUTSIDE RECORDS SUMMARY | 2024-02-23 04:37 | XMS_ITS ---
Author Organization [facility] Address [address] [place], [place] [id number] Care Team Providers Care Knot Picker Cloth Name Role Phone America Gonzales MD Primary Care Provider Jah Macdonald M.D., Alonso Silva [phone] REASON FOR VISIT Pathology results Encounters Encounter Location Date Provider Diagnosis [facility] [address] [id number] 09/21/2022 Alonso Macdonald Plan Of Treatment No Information Progress Notes * Jenny OLIVEROS MDOB: [birth year] (22 yo F)Acc No.[id number]:09/21/2022 Patient:?Jenny Oliveros :2000???Age:22 Y???Sex:Female Address:[address] [place] [address], [phone] * true * Date:? Generated for Adilson saunders/Sharon/eTransmitting on:?02/23/2024 04:36 AM EST
== END 2024-02-18 06:28 | disposition home or self-care (01) ==
LOC: HO.UMASIMG 06:27
PROVIDERS: Visit Provider Registered Nurse
DX: Z30.431 Encounter for routine checking of intrauterine contraceptive device (principal)
CPT/HCPCS: 76830; 76856